=== PATIENT | male | born 1960 | race Caucasian/White ===

== ENCOUNTER → 2017-05-18 | Outpatient (CLI) | payer BC ==
--- NOTE | 2017-05-20 08:17 | PE ---
EXAMINATION TYPE: PET CT fusion skull to thigh DATE OF EXAM: 05/18/2017 COMPARISON: Outside neck CT May 24, 2016 HISTORY: Right-sided head and neck cancer TECHNIQUE: Following the intravenous administration of 15.36 mCi of F-18 FDG, whole body images are performed from the skull base to the midthigh. Images are reviewed on the computer in the coronal, a xial, and sagittal planes. Reconstructed rotating images are created on independent workstation and reviewed on the computer. A noncontrast CT is performed in conjunction with the PET scan. Dedicated PET CT neck imaging is performed. SCAN: Initial Scan FINDINGS: SKULL BASE AND NECK: Patient has very little intra-abdominal fat making evaluation suboptimal. There is no soft tissue planes in right neck in area of abnormal hypermetabolic uptake making localization of area difficult. There is diffuse fat stranding on current study versus outside contrast enhanced neck CT. Likely corresponding to right parapharyngeal adenopathy on outside CT there is area of abnor mal hypermetabolic uptake measuring 2.3 x 1.8 cm on axial image 42. Max SUV is 14.3. There is single 3 mm focus of hypermetabolic uptake just anterior to right of midline at level of vallecula on axial image 45 can't exclude second small focus of mucosal neoplasm. Max SUV is 5.99. CHEST, MEDIASTINUM, AND HILAR REGION: No suspicious hypermetabolic uptake is present. There is backgr ound moderate emphysematous change seen. ABDOMEN AND PELVIS: There is slightly more prominent bowel uptake in the right upper quadrant without corresponding wall thickening clearly seen. Normal excretion and bladder uptake is present. OSSEOUS STRUCTURES: No suspicious hypermetabolic uptake is identified. OTHER CT: There is mild/moderate wall thickening in right maxillary sinus redemonstrated. There is sm all mucous retention cyst or polyp in inferior left maxillary sinus redemonstrated. There is coronary artery calcification which is noted marker for coronary artery disease. There is small pericardial effusion and/or thickening seen anteriorly on axial image 139. Patient has very little abdominal fat making evaluation suboptimal. There is moderate calcified plaqu e in the aorta extending into iliac branch vessels. There are central zone calcification seen in normal-sized prostate gland. Facet arthropathy lower lumbar levels. There is multilevel spurring of the thoracolumbar spine. IMPRESSION: Abnormal hypermetabolic uptake correlates to right parapharyngeal adenopathy. Marked blur ring of fat planes on current study makes accurate measurements difficult. Signal small nonspecific m ucosal focus just right of midline anterior vallecula noted consider direct visualization. No metasta tic disease is evident.
== END | disposition home or self-care (01) ==
LOC: RADPETMAIN 07:31
PROVIDERS: ATTEND Otolaryngology
DX: C77.0 Secondary and unspecified malignant neoplasm of lymph nodes of head, face and neck (principal)
CPT/HCPCS: 78815; A9552

== ENCOUNTER 2017-10-09 13:10 | Day surgery (SDC) | payer BC ==
[~2017-10-09 13:10] MED LIST: DEXAMETHASONE SOD PHOSPHATE 10 MG/ML 1 ML VIAL IV ONE; DEXAMETHASONE SOD PHOSPHATE 4 MG/ML 1 ML VIAL IV ONE; FAMOTIDINE 20 MG/2 ML VIAL IV ONE; MIDAZOLAM 2 MG/2 ML VIAL IV PRN; ONDANSETRON 4 MG/2 ML VIAL IVP ONE; ONDANSETRON ODT 4 MG TAB PO ONE; PROMETHAZINE INJ 6.25 MG in SODIUM CHLORIDE 0.9% 50 ML IVPB PRN; SCOPOLAMINE 1.5MG/72HR PATCH TRANSDERM ONE; fentaNYL (PF) 50 MCG/ML 2 ML AMP IV PRN
[2017-10-09] MEDS: OXYMETAZOLINE 0.05% NASL SPRAY 1 SPRAY BOTTLE NASAL ONE ×5 (14:23→14:53)
[2017-10-09] MEDS: LACTATED RINGERS 1,000 ML IV SCH ×2 (14:23→16:45)
[2017-10-09] MEDS ORDERED: LIDOCAINE 1% 20 ML VIAL (10MG/ML) FOR IV START INTRADERMA ONE (14:23)
[2017-10-09] MEDS ORDERED: ONDANSETRON 4 MG/2 ML VIAL IVP ONE (14:25)
[2017-10-09] MEDS ORDERED: ePHEDrine SULFATE/0.9% NACL/PF 50 MG/5 ML SYRINGE IV ONE (16:40)
[2017-10-09] MEDS ORDERED: SUCCINYLCHOLINE CHLORIDE 100 MG/5 ML SYR IV ONE (16:40)
[2017-10-09] MEDS ORDERED: LIDOCAINE 1% INJ 10MG/ML (20 ML MDV) ONE (16:40)
[2017-10-09] MEDS ORDERED: PROPOFOL 10 MG/ML 20 ML VIAL IV ONE (16:40)
[2017-10-09] MEDS ORDERED: fentaNYL (PF) 50 MCG/ML 2 ML AMP ONE (16:40)
[2017-10-09] MEDS ORDERED: LACTATED RINGERS 1,000 ML IV ONE (17:14)
--- NOTE | 2017-10-09 17:31 | P.OP ---
Date of Procedure: 10/09/17 Preoperative Diagnosis: Metastatic squamous cell carcinoma right neck Postoperative Diagnosis: Same Procedure(s) Performed: Flexible bronchoscopy Rigid esophagoscopy Direct microlaryngoscopy with biopsy bilateral vallecula Anesthesia: RAPHAELA Surgeon: Joseph Galeas Estimated Blood Loss (ml): 2 Condition: stable Disposition: PACU Indications for Procedure: This is a 57-year-old white male with approximate 2-1/2 year history of right neck mass which is slowly enlarging. He had computed tomography scan of the neck in May 2016 showing a 2.6 cm right cervical lymph node. He towards the end of last year had fine-needle aspiration of this node which showed squamous cell carcinoma. He had a PET scan more recently which showed the mass itself as well as otherwise a small 3 mm abnormality in the right vallecula. Otherwise the scan was unremarkable. Operative Findings: Small nodules approximately 2 mm left vallecula and approximately 4 mm right vallecula both were biopsied these were smooth and rounded otherwise no mucosal lesions noted on the 3 different scopes Description of Procedure: The patient was brought in the operative suite and placed in a supine position. The patient underwent induction of general anesthesia with oral endotracheal intubation without difficulty. The patient was prepped and draped fashion. Tooth guard was placed and nasopharyngeal exam was performed with mirror exam with no abnormalities noted. Patient tongue was palpated also with no abnormalities. Direct laryngoscopy was performed with systematic evaluation of the base of tongue vallecula both piriform sinuses post cricoid area and endolarynx. With the larynx in good visualization flexible bronchoscopy was performed through the laryngoscope down to the secondary bronchi which was unremarkable. Direct endoscopy was performed as noted above. There were some small nodules in the left and right vallecula and under microscopy these were biopsied. These were sent for permanent section. No other abnormalities were noted. Rigid esophagoscopy was then performed to 35 cm from the upper incisors with no abnormalities noted of the mucosa and then withdrawn. No trauma was noted. The tooth guard was then removed. The patient was then allowed to emerge from general anesthesia having tolerated procedure well was extubated in the operating suite and transferred to the postop recovery area in satisfactory condition.
[2017-10-09 17:50] VITALS: TEMP 98
[2017-10-09 17:59] VITALS: RESP 16
[2017-10-09 18:30] VITALS: BP 140/70; PULSE 77
== END 2017-10-09 18:49 | disposition home or self-care (01) ==
LOC: OR 13:10
PROVIDERS: ATTEND Otolaryngology
DX: C10.0 Malignant neoplasm of vallecula (principal); J38.7 Other diseases of larynx; I10 Essential (primary) hypertension; F17.210 Nicotine dependence, cigarettes, uncomplicated; Z82.49 Family history of ischemic heart disease and other diseases of the circulatory system; Z79.82 Long term (current) use of aspirin; Z79.899 Other long term (current) drug therapy
CPT/HCPCS: 31526; 43193; 31622; 88305; 88342; 88341; J1100; J2405; J2001; J3010; J0330; J2704

== ENCOUNTER → 2017-11-09 | Outpatient (CLI) | payer BC ==
--- NOTE | 2017-11-11 09:40 | PE ---
EXAMINATION TYPE: PET CT fusion skull to thigh DATE OF EXAM: 11/09/2017 COMPARISON: Prior outside neck CT May 24, 2016. 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 TECHNIQUE: Following the intravenous administration of 15.146 mCi of F-18 FDG, whole body images are performed from the skull base to the midthigh. Images are reviewed on the computer in the coronal, axial, and sagittal planes. Reconstructed rotating images are created on independent workstation and reviewed on the computer. A noncontrast CT is performed in conjunction with the PET scan. Dedicate d head and neck PET/CT imaging is performed. SCAN: Subsequent Scan FINDINGS: SKULL BASE AND NECK: Similar prior study patient has very little fat making evaluation suboptimal as there are no soft tissue planes to help localize and identify distinct lesions. There is felt interv al disease progression, right parapharyngeal hypermetabolic mass shows increased hypermetabolic uptak e over a larger area with central necrosis measuring roughly 5.3 x 3.4 cm on axial image 41, max SUV is 12.74. Along superior aspect there is 1.0 cm deep right parotid hypermetabolic mass or possible ly mph node, max SUV is 9.97 axial image 33. Along inferior aspect axial image 45 at level of superior a spect hyoid bone there is subcentimeter hypermetabolic focus, max SUV is 12.74, possible lymph node. CHEST, MEDIASTINUM, AND HILAR REGION: Moderate underlying emphysematous change is redemonstrated. No new areas of suspicious hypermetabolic uptake are seen. ABDOMEN AND PELVIS: No new areas of suspicious hypermetabolic uptake are seen. OSSEOUS STRUCTURES: There is new osseous metastatic disease present. For reference there is left late ral scapular lesion axial image 83 with max SUV of 5.45. On same image there is new left thoracic hyp ermetabolic sclerotic focus max SUV of 5.64. Inferior to this there is new hypermetabolic lamina lesi on axial image 99 with max SUV of 3.59. There is left posterior lateral new hypermetabolic rib lesion axial image 128 with max SUV of 3.95. There is new large left iliac subtle sclerotic lesion axial im age 214 with max SUV of 9.2. OTHER CT: Mild mucosal thickening inferior bilateral maxillary sinuses is redemonstrated. Underlying emphysematous change most prominent lung apices is redemonstrated. There is three-vessel coronary artery calcification and/or stents again seen. There is stable small p ericardial effusion and/or thickening seen anteriorly. There is moderate atherosclerotic change of aorta extending into branch vessels. Patient redemonstrates very little intra-abdominal fat making evaluation suboptimal. There is multilevel facet arthropathy lower lumbar spine redemonstrated. IMPRESSION: Findings are consistent with neoplastic progression with felt enlarging for metabolic rig ht sided neck mass fairly stable in max SUV. There is also new diffuse osseous metastatic disease not ed.
== END ==
LOC: RADPETMAIN 12:29
PROVIDERS: ATTEND Internal Medicine Hematology & Oncology
DX: C10.0 Malignant neoplasm of vallecula (principal); C79.51 Secondary malignant neoplasm of bone
CPT/HCPCS: 78815; A9552

== ENCOUNTER → 2018-02-22 | Outpatient (CLI) | payer BC ==
--- NOTE | 2018-02-25 08:27 | PE ---
EXAMINATION TYPE: PET CT fusion skull to thigh DATE OF EXAM: 02/22/2018 CLINICAL HISTORY: Head and neck cancer progress study completed chemotherapy February 13, 2018 and r adiation treatment in November 2017. TECHNIQUE: Following the intravenous administration of 12.516 mCi of F-18 FDG, whole body images ar e performed from the skull base to the midthigh. Images are reviewed on the computer in the coronal, axial, and sagittal planes. Reconstructed rotating images are created on independent workstation an d reviewed on the computer. A non-contrast CT is performed in conjunction with the PET scan. [facility] neck PET/CT imaging is performed. COMPARISON: Prior PET/CT November 09, 2017 and older exams May 18, 2017. FINDINGS: SKULL BASE AND NECK: Confluent hypermetabolic large right parotid mass on prior PET CTs shows marked interval improvement without definitive abnormal hypermetabolic uptake on current study near axial i mage 38. Single small subcentimeter focus mildly near the right-sided oral mucosa axial image 40, max SUV is h owever under 2.5. Just inferior anterior to this right lateral mandibular molar tooth has more promin ent abnormal hypermetabolic uptake, max SUV is 4.88, correlate for active dental infection or cavity. Linear uptake is seen inferior to area of prior neoplasm presumed inflammatory change in the overlyin g sternocleidomastoid muscle. CHEST, MEDIASTINUM, AND HILAR REGION: Background of advanced underlying emphysematous changes redemon strated. No new areas of suspicious hypermetabolic uptake are present. ABDOMEN AND PELVIS: Focus of increased uptake upper pole level right kidney is presumed to reflect ex cretion unchanged from prior. No suspicious new areas of abnormal hypermetabolic uptake are present. OSSEOUS STRUCTURES: There are multiple hypermetabolic osseous lesions corresponding to sclerotic and lytic areas which have progressed from most recent PET/CT several lesions are seen in the mid thoraci c vertebra near axial image 79. T5 uptake axial image 77 has max SUV 5.84 There is sclerotic left pos terior lateral hypermetabolic rib lesion axial image 124 and faint hypermetabolic posterior lateral r ight lower rib lesion axial image 135. Right ischial tuberosity hypermetabolic lesion axial image 196 is present. Max SUV is 7.64 at this level. OTHER CT: There is mild mucosal thickening involving the inferior left maxillary sinus improved from prior. Bilateral gynecomastia is redemonstrated. Coronary artery calcification is redemonstrated which is noted marker for coronary artery disease. St able tiny pericardial effusion. 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 Gallbladder has distended margins. Moderate calcified plaque of the infrarenal aorta extends into pel aftab branch vessels. There is facet arthropathy lower lumbar levels. IMPRESSION: Osseous metastatic disease progression. Marked improvement however in primary mass or leilani plasm right neck level.
== END ==
LOC: RADPETMAIN 10:32
PROVIDERS: ATTEND Internal Medicine Hematology & Oncology
DX: C10.0 Malignant neoplasm of vallecula (principal); C79.51 Secondary malignant neoplasm of bone
CPT/HCPCS: 78815; A9552

== ENCOUNTER 2018-03-12 10:08 | Inpatient (IN) | payer BC ==
[2018-03-12] MEDS ORDERED: DEXAMETHASONE SOD PHOSPHATE 10 MG/ML 1 ML VIAL IV STA (10:26)
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
[2018-03-12 11:10] LABS: Anisocytosis Slight; Basophils % (A) 0 %; Eosinophils # (A) 0.1 k/uL (0-0.7); Eosinophils % (A) 2 %; HCT 30.4 % (39.0-53.0); HGB 10.2 gm/dL (13.0-17.5); Lymphocytes # (A) 0.8 k/uL (1.0-4.8); Lymphocytes % (A) 24 %; MCH 33.1 pg (25.0-35.0); MCHC 33.6 g/dL (31.0-37.0); MCV 98.6 fL (80.0-100.0); Macrocytosis Slight; Mean Platelet Volume 7.4; Monocytes # (A) 0.1 k/uL (0-1.0); Monocytes % (A) 3 %; Neutrophils # (A) 2.1 k/uL (1.3-7.7); Neutrophils % (A) 67 %; Platelet Count 119 k/uL (150-450); RBC 3.09 m/uL (4.30-5.90); RDW 17.8 % (11.5-15.5); WBC 3.1 k/uL (3.8-10.6)
--- NOTE | 2018-03-12 11:22 | CT ---
EXAMINATION TYPE: CT brain wo con DATE OF EXAM: 03/12/2018 COMPARISON: None HISTORY: unbalanced in walking, ataxia, weakness. Neuro deficits CT DLP: 1089.70 mGycm Automated exposure control for dose reduction was used. Helical imaging through the brain. FINDINGS: There is no hemorrhage or hydrocephalus. Cerebral vascular calcifications are present. Orbits are int act. Paranasal sinuses and mastoid air cells as visualized are normal. Periventricular white matter s hows patchy low attenuation. IMPRESSION: NONSPECIFIC WHITE MATTER DEMYELINATION, BRAIN MRI MAY BE OF BENEFIT.
[2018-03-12 11:24] LABS: ALT 35 U/L (21-72); AST 36 U/L (17-59); Albumin 3.8 g/dL (3.5-5.0); Alkaline Phosphatase 47 U/L (38-126); Anion Gap 10 mmol/L; Blood Urea Nitrogen 25 mg/dL (9-20); Calcium 8.7 mg/dL (8.4-10.2); Carbon Dioxide 26 mmol/L (22-30); Chloride 96 mmol/L (98-107); Glucose 96 mg/dL (74-99); Potassium 4.4 mmol/L (3.5-5.1); Sodium 132 mmol/L (137-145); Total Bilirubin 0.7 mg/dL (0.2-1.3)
[2018-03-12 11:39] LABS: Creatine Kinase 63 U/L (55-170)
[2018-03-12 11:41] LABS: INR 1.1 (<1.2); Partial Thromboplastin Time 23.2 sec (22.0-30.0); Prothrombin Time 10.3 sec (9.0-12.0)
[2018-03-12 11:52] LABS: Creatine Kinase MB 1.3 ng/mL (0.0-2.4); Troponin I <0.012 ng/mL (0.000-0.034)
[2018-03-12] MEDS ORDERED: NALOXONE 0.4 MG/ML 1 ML VIAL IV PRN (12:13)
[2018-03-12] MEDS ORDERED: HYDROmorphone 1 MG/ML 1 ML SYRINGE IVP PRN (12:13)
[2018-03-12] MEDS ORDERED: ACETAMINOPHEN TAB 325 MG TAB PO PRN (12:13)
[2018-03-12] MEDS ORDERED: LORATADINE 10 MG TAB PO PRN (17:59)
--- NOTE | 2018-03-12 20:49 | MR ---
EXAMINATION TYPE: MR brain/lspine wo con DATE OF EXAM: 03/12/2018 COMPARISON: None HISTORY: B/L lower ext ataxia, CA Hx Standard multiplanar, multisequence MRI departmental protocol Multiplanar, multisequence images of the brain were acquired. Diffusion weighted imaging was performe d. FINDINGS: There is mild cerebral cortical atrophy. On the T2 and FLAIR images there are numerous foci of increased signal in the periventricular white matter. These measure up to 5 mm. Total number is a pproximately 25. Brainstem is intact. Sella turcica appears normal. Corpus callosum appears normal. T here is no evidence of cortical infarct. There is small mucus retention cyst left maxillary sinus. IMPRESSION: Cerebral atrophy. White matter signal changes are nonspecific and could relate to microvascular ische [place] or demyelinating disease. MR scan lumbar spine. Multiplanar multiecho imaging of the lumbar spine was performed with no contras t. FINDINGS: Lumbar vertebra have normal alignment. There is narrowing of L4-5 disc space. The other disc spaces a re fairly normal. There is no compression fracture. Upper sacroiliac joints appear normal. There is n o lumbar paraspinal mass. There is no spinal stenosis. There is small posterior disc bulging at L3-4 L4-5. Lumbar nerve roots appear normal. The neuroforamina are fairly well-maintained. There is a 2 cm rounded area of low signal in the L2 vertebral body anteriorly. Margins are fairly sharp. This has i ntermediate signal on the T2 images. This has increased uptake on the PET scan and consistent with tu mor. IMPRESSION: Mild spondylotic changes. 2 cm lesion in the L2 vertebral body consistent with metastatic disease. No spinal stenosis. No compression fracture.
--- NOTE | 2018-03-12 21:23 | MR ---
MRI CERVICAL SPINE: MR scan thoracic spine CLINICAL HISTORY: TECHNIQUE: Multiplanar, multisequence imaging of the cervical spine and thoracic spine is performed w ithout contrast. COMPARISON: PET/CT scan 02/22/2018 FINDINGS: The cervical vertebra have normal alignment. There is mild narrowing of cervical disc space s. There are small posterior disc herniations at C3-4 C4-5 without significant impingement on the cer vical spinal cord. Cervical spinal cord has normal signal pattern without edema. There is no cervical spinal stenosis. Brainstem is intact. The posterior elements appear intact. There is a degenerative cyst within the C4 vertebral body that contains air. I see no compression fracture of the cervical sp ine. The thoracic spine shows large areas of decreased signal in the T8 T7 vertebral bodies as well as the entire T5 vertebral body consistent with tumor. There is extension of abnormal decreased signal on t he T1 images in to the left pedicle of T7, right pedicle T8, bilateral pedicles of T5. There is some mild compression deformity of T5 superior endplate and posterior expansion into the spinal canal impi nging on the thoracic spinal cord at T5. There is similar minimal change at T8. I see no thoracic par aspinal mass. IMPRESSION: Spondylotic changes in the cervical spine. No spinal stenosis. No fracture. No evidence of metastatic disease. Abnormal signal pattern in the T5 T7 T8 vertebral bodies with tumor extension into the pedicles and a lso tumor extension at T5 into the spinal canal producing a moderate spinal stenosis. There is epidur al circumferential tumor anteriorly and posteriorly in the spinal canal. I see no edema of the thorac ic spinal cord. There is small posterior tumor extension at the T8 vertebral body.
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
[2018-03-12] MEDS: ALPRAZolam 0.5 MG TAB PO SCH (23:03)
[2018-03-12 23:06] VITALS: RESP 18
[2018-03-12] MEDS: PANTOPRAZOLE 40 MG/10 ML VIAL IVP SCH (23:10)
[2018-03-12] MEDS: DEXAMETHASONE 4 MG TAB PO SCH (23:10)
--- NOTE | 2018-03-13 08:41 | HP ---
HISTORY AND PHYSICAL CHIEF COMPLAINT: Inability to control his balance and position is feet while walking. This is a 57-year-old white male that came to my office approximately a year ago to a year and a half ago, found to have a lesion on his neck. He had a biopsy completed and ended up with metastatic squamous cell carcinoma. Afterwards, he was followed up accordingly in the oncology clinic and undergoes 5 cycles of chemotherapy. He also undergone radiation therapy for lesions to the throat. He has 15 radiation treatments for condition. The patient states that he follows up with the oncology clinic on a regular period of time and with radiation and chemo I have not seen him in quite a while. He decided to wait until he got to the oncology clinic due to this problem with position in the feet. He did see the nurse practitioner then was placed in the hospital accordingly. The patient denies any significant bone pain in his back. He mentioned on Saturday that he did have difficulty with walking with sudden change, not a transient change. He has had some nonspecific numbness in his lower back, which has been related with lumbar stenosis from many years ago. It is well documented in my previous charts. He thinks it is related with his chemotherapy, but it did come on awful subtly. Also states he just had a PET scan and he said everything looked very good without any evidence of metastatic disease. At this time neurologically he really had nothing different. He says he has been able to ambulate with a walker, but it is very, very difficult. As the patient has an MRI of the brain and spine and we are waiting for the results at this period of time. REVIEW OF SYSTEMS: CONSTITUTION: He has had no fever, no chills, actually felt quite good. EYES: He denies blurred vision. EAR, NOSE, MOUTH AND THROAT: Denies headache, sore throat. CARDIOVASCULAR: Shortness of breath. RESPIRATORY: Cough. GI: He has had no vomiting, no diarrhea, no constipation. MUSCULOSKELETAL: Muscle weakness, myalgias. INTEGUMENTARY: Pruritus, denies rash. NEUROLOGICALLY: Reports gait dysfunction, lack of coordination and balance. Reports some tingling in his legs, this was longstanding. PSYCHIATRIC: He has some anxiety. Denies depression. ENDOCRINE: He has had no endocrine problem. His weight has stayed very, very steady. PAST MEDICAL HISTORY: He has had cancer and hypertension. Additional medical history was of course of the right lymph nodes for positive vallecular squamous cell cancer, has 15 radiation treatments and chemo. He did have a MRSA infection back in 05/2017 in the testicle area. We had him in the hospital at [place], did IV antibiotics and surgical drainage and he did well. He has had no anesthesia reactions. Again, the psychiatric is just anxiety. He is still a current every day smoker, but occasionally stop drinking 100%. In 1975, he started 2 packs a day. After aggressive treatment in the office, he is now down to 1 to 2 cigarettes. No past drug use and he has been a long-time ulloa by work. He does live with his . FAMILY HISTORY: Family history of hypertension. Father is 86 years old and has just some problems with his sodium. Mother had congestive heart failure and at 69 and she did have an AICD. MEDICATIONS: 1. Aspirin 81 daily. 2. Claritin 10 daily. 3. He has been on 100-12.5 losartan daily. 4. Xanax 0.5 twice a day. ALLERGIES: Allergies allergies within normal limits. PHYSICAL EXAMINATION: Temperature is 98.4, pulse is 82, respiratory 16, blood pressure is 130/74, O2 sats 96. GENERAL APPEARANCE: Very cooperative. Patient is in good shape, even works out still. EYES: Pupils are equal, round, react to light and accommodation. ENT: Large lesion on his neck is no longer palpable. RESPIRATORY: Clear with normal breath sounds. HEART: Sinus rhythm with no murmur. No S3, no S4. ABDOMEN: Soft, nontender with no organomegaly. No palpable masses. INTEGUMENTARY: Basically within normal except he has a large right hyperpigmented nevus on his leg has been unchanged for a long period of time. CRANIAL NERVES: All appear to be intact. His speech is intact. Motor, sensation, deep tendon reflexes are within normal limits. He does have an ataxic gait. PSYCHIATRIC: He is in a good mood and it is appropriate. ASSESSMENT: 1. Metastatic squamous cell carcinoma. 2. Polyneuropathy, questionably with chemotherapy. 3. Ataxia both feet. 4. Gait instability. 5. Hypertension. 6. First time lesions with abnormal signal in T5, T7, T8 vertebrae with extension into the pedicle, also extension into the into canal with moderate stenosis, spondylitic lesion in L2 consistent with metastatic disease, but no compression effect. The patient states he recently had a PET scan and supposedly he thought the PET scan was normal, but there was an increased uptake on the PET scan consistent with the tumor. Hemoglobin is 10. Chem 17 is within normal limits as is all of his PT and INR again. PLAN: We will discuss with Oncology about the next step forward for treatment. The patient is very emphatic about it, he does not want anything unless it is going to benefit him and he does not want anything at this point to make it worse. We will talk with both Dr. Quiroz personally and Dr. Keenan. RIMA / JENISE: [id number] /
[2018-03-13] MEDS ORDERED: ASPIRIN 81 MG PO SCH (09:00)
[2018-03-13] MEDS ORDERED: LOSARTAN 50 MG TAB PO SCH (09:00)
[2018-03-13] MEDS ORDERED: HYDROCHLOROTHIAZIDE 12.5 MG CAP PO SCH (09:00)
[2018-03-13] MEDS: ALPRAZolam 0.5 MG TAB PO SCH (09:17)
[2018-03-13] MEDS: DEXAMETHASONE 4 MG TAB PO SCH ×3 (09:18→18:04)
[2018-03-13] MEDS: PANTOPRAZOLE 40 MG/10 ML VIAL IVP SCH (09:18)
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
[2018-03-13] MEDS ORDERED: ALPRAZolam 0.5 MG TAB PO STA (12:02)
[2018-03-13] MEDS ORDERED: HYDROcodone/APAP 5-325MG 1 EACH TAB PO PRN (12:03)
[2018-03-13 14:44] VITALS: BP 163/91; PULSE 84; TEMP 98
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
== END 2018-03-13 20:45 | disposition short-term general hospital (02) | DRG 543 ==
LOC: EC 10:08 → 5ONC 12:13
PROVIDERS: ADMIT Family Medicine; ATTEND Family Medicine
DX: C79.51 Secondary malignant neoplasm of bone (principal); G99.2 Myelopathy in diseases classified elsewhere; C77.0 Secondary and unspecified malignant neoplasm of lymph nodes of head, face and neck; G95.29 Other cord compression; I10 Essential (primary) hypertension; C10.9 Malignant neoplasm of oropharynx, unspecified; J30.2 Other seasonal allergic rhinitis; F41.9 Anxiety disorder, unspecified; F17.210 Nicotine dependence, cigarettes, uncomplicated; Z71.6 Tobacco abuse counseling; Z79.82 Long term (current) use of aspirin; Z79.899 Other long term (current) drug therapy; Z86.14 Personal history of Methicillin resistant Staphylococcus aureus infection; Z87.81 Personal history of (healed) traumatic fracture; Z82.49 Family history of ischemic heart disease and other diseases of the circulatory system; M48.061 Spinal stenosis, lumbar region without neurogenic claudication; M48.04 Spinal stenosis, thoracic region
CPT/HCPCS: 36415; 70450; 70551; 72141; 72146; 72148; 80053; 82550; 82553; 84484; 85025; 85610; 85730; 93005; 96374; 99285